=== PATIENT | male | born 1990 | race Caucasian/White ===

== ENCOUNTER 2018-02-05 12:23 | Emergency (ER) | payer OTHER ==
[~2018-02-05] VITALS: Ht 180.3 cm; Wt 82.1 kg
[2018-02-05] MEDS ORDERED: CLEOCIN300 MG PO (13:32)
[2018-02-05 14:17] VITALS: BP 122/67
== END 2018-02-05 14:18 | disposition home or self-care (01) ==
LOC: EME 12:23
DX: L03.115 Cellulitis of right lower limb (principal); W57.XXXA Bitten or stung by nonvenomous insect and other nonvenomous arthropods, initial encounter; F17.200 Nicotine dependence, unspecified, uncomplicated; Z88.5 Allergy status to narcotic agent; Z88.6 Allergy status to analgesic agent
CPT/HCPCS: 99281; 99283